=== PATIENT | female | born 1960 | race Caucasian/White ===

== ENCOUNTER 2020-12-13 14:18 | Outpatient (REF) | payer OTHER, SELFPAY ==
--- NOTE | ~2020-12-13 | MM_ITS ---
EXAMINATION: MM DIAGNOSTIC DIGITAL BREAST TOMOSYNTHESIS, BILATERAL CLINICAL INFORMATION: Left breast calcifications The lifetime risk of breast cancer based on the Tyrer-Cuzick Model is 7.9%. COMPARISON: Mammography: December 06, 2019 and studies dating back to October 10, 2018 TECHNIQUE: Digital breast tomosynthesis is performed in both the craniocaudal and mediolateral oblique views along with computer-aided detection (CAD). Synthesized 2D images are generated from the tomosynthesis. Additional spot magnification views left breast in craniocaudal and 90 degree mediolateral views performed. FINDINGS: The breasts are extremely dense, which lowers the sensitivity of mammography (ACR BI-RADS breast composition Category d). There are no new significant masses, abnormal calcifications, or other abnormalities. The 2 regions of left breast calcifications appear stable dating back to study of October 10, 2018 which is 2 years of stability. Results are provided to the patient at time of visit by the technologist. MM/MM tomosynthesis diagnostic BI IMPRESSION: There are no significant changes from prior study. ASSESSMENT: BI-RADS 2: Benign RECOMMENDATION: Routine annual mammography screening due in 12 months. This patient's information was entered into a reminder system with a target due date for their next mammogram.
== END 2020-12-13 14:19 | disposition home or self-care (01) ==
LOC: HO.MAMMO 14:18
PROVIDERS: PCP Nurse Practitioner Family; Visit Provider Surgery
DX: R92.1 Mammographic calcification found on diagnostic imaging of breast (principal)
CPT/HCPCS: 77062; 77066

== ENCOUNTER → 2021-01-13 15:45 | Outpatient (BNVA) | payer OTHER, SELFPAY | PROVIDERS: PCP Nurse Practitioner Family; Visit Provider Surgery ==

== ENCOUNTER 2021-12-27 09:31 | Outpatient (REF) | payer OTHER, SELFPAY ==
--- NOTE | ~2021-12-27 | MM_ITS ---
EXAMINATION: MM SCREENING DIGITAL BREAST TOMOSYNTHESIS, BILATERAL CLINICAL INFORMATION: Screening. Asymptomatic. The lifetime risk of breast cancer based on the Tyrer-Cuzick Model is 6%. COMPARISON: Mammography: 12/13/2020, 12/06/2019, 05/16/2019, 10/13/2018, 10/10/2018 TECHNIQUE: Digital breast tomosynthesis is performed in both the craniocaudal and mediolateral oblique views along with computer-aided detection (CAD). Synthesized 2D images are generated from the tomosynthesis. FINDINGS: The breasts are heterogeneously dense, which may obscure small masses (ACR BI-RADS breast composition Category c). Parenchymal pattern is similar to prior studies. There is no developing density or architectural abnormality. There is biopsy clip marker again noted right breast lower inner quadrant. Some scattered punctate calcifications central and anterior upper outer left breast are stable. The axilla and skin contours are unremarkable. No significant changes. MM/MM tomosynthesis screening BI IMPRESSION: No mammographic evidence of malignancy. ASSESSMENT: BI-RADS 2: Benign RECOMMENDATION: Routine annual mammography screening. This patient's information was entered into a reminder system with a target due date for their next mammogram.
== END 2021-12-27 09:32 | disposition home or self-care (01) ==
LOC: HO.MAMMO 09:31
PROVIDERS: Visit Provider Nurse Practitioner Family
DX: Z12.31 Encounter for screening mammogram for malignant neoplasm of breast (principal)
CPT/HCPCS: 77063; 77067

== ENCOUNTER 2022-04-05 09:58 | Emergency (ER) | payer OTHER, SELFPAY ==
--- NOTE | ~2022-04-05 | CT_ITS ---
EXAMINATION: CT ABDOMEN AND PELVIS WITHOUT CONTRAST CLINICAL INFORMATION: Lower abdominal pain with hematuria COMPARISON: CT abdomen pelvis November 09, 2019 TECHNIQUE: Multidetector volumetric imaging was performed from the superior aspect of the liver through the pubic symphysis. Sagittal and coronal reformatted images were obtained on the technologist's workstation. This CT examination was performed using dose optimization techniques as appropriate, variously including the following: *Automated exposure control *Adjustment of mA and/or kV according to patient size (this includes techniques or standardized protocols for targeted exams where dose is matched to indication/reason for exam; i.e. extremities or head) *Use of iterative reconstruction technique DLP: 776 mGy-cm FINDINGS: Visualized lung bases are well aerated. The liver demonstrates normal size, contour and attenuation. The gallbladder is normal in appearance. The pancreas, spleen and adrenal glands are unremarkable. Symmetrically sized kidneys. No renal calculi or hydronephrosis of either kidney. Tiny hiatal hernia. The stomach is decompressed. There is a mild to moderate colonic stool burden. There is colonic diverticulosis. Localized colonic wall thickening of the sigmoid colon with adjacent pericolonic stranding suggesting active diverticulitis. There is no complicating abscess. The bladder is completely decompressed and therefore not evaluated. Uterus is surgically absent. No gross free pelvic fluid. No inguinal lymphadenopathy. Mild degenerative changes of the spine. CT/CT abdomen pelvis wo IV con IMPRESSION: Active diverticulitis of the sigmoid colon. No complicating abscess. Colonoscopy may be warranted following treatment to ensure there is no underlying lesion. Fleischner guidelines were followed.
[2022-04-05 10:09] VITALS: BP 180/98; PULSE 89; RESP 16; O2SAT 98; BMI 27.3
[2022-04-05 11:48] LABS: MANUAL DIFF FLAG NO
[2022-04-05 11:52] LABS: Appearance Urine Clear; Color Urine Dark Yellow; Glucose Urine UA Negative (Negative); Leukocyte Esterase Urine Negative (Negative); Nitrite Urine Negative (Negative); PH 5.5 (5.0-9.0); Specific Gravity - Urine 1.025 (1.005-1.025); UMIC TRIGGER UACC YES; Urine Blood Moderate (2+) (Negative); Urine Ketones 40 mg/dL (Negative); Urine Protein Trace mg/dL (Neg-Trace)
[2022-04-05 11:54] LABS: Bacteria Urine None Seen (None Seen); Hyaline Casts Urine 0-2 /LPF (0-2); WBC Urine 0-5 /HPF (0-5)
[2022-04-05 11:55] LABS: Prothrombin Time 11.4 SEC (10.0-13.1)
[2022-04-05 11:58] LABS: Basophils Absolute Auto 0.1 X10*3/uL (0.0-0.2); Basophils Percent Auto 0.4 % (0-2); Eosinophils Absolute Auto 0.1 X10*3/uL (0.0-0.4); Hematocrit 44.1 % (37.0-47.0); Hemoglobin 14.2 g/dl (12.0-16.0); Imm Gran Abs Auto 0.04 X10*3/uL (0.00-0.03); Imm Gran Pct Auto 0.3 % (0.0-0.4); Lymphocytes Absolute Auto 2.1 X10*3/uL (1.2-4.9); Lymphocytes Percent Auto 14.6 % (20-40); Mean Corpuscular HGB Conc 32.2 g/dl (31.0-35.0); Mean Corpuscular Hemoglobin 29.5 pg (27.0-33.0); Mean Corpuscular Volume 91.7 fL (80.0-98.0); Mean Platelet Volume 10.6 fL (9.4-12.3); Monocytes Percent Auto 6.9 % (2-11); Neutrophils Absolute Auto 10.9 x10*3/uL (2.0-8.3); Neutrophils Percent Auto 76.8 % (45-73); Platelet Count 313 X10*3/uL (160-400); Red Blood Count 4.81 X10*6/uL (4.20-5.50); Red Cell Distribution Width 13.3 % (11.0-16.0); White Blood Count 14.2 X10*3/uL (4.8-10.8)
[2022-04-05 12:07] LABS: Alanine Aminotransferase 11 U/L (0-31); Albumin Level 4.3 g/dL (3.5-5.0); Alkaline Phosphatase 87 U/L (39-117); Anion Gap 15 (12-20); Aspartate Amino Transferase 15 U/L (5-31); Bilirubin Direct 0.3 mg/dL (0.0-0.5); Bilirubin Total 0.8 mg/dL (0.0-1.0); Blood Urea Nitrogen 15 mg/dL (9-16); Calcium 9.3 mg/dL (8.4-10.2); Carbon Dioxide 23 mmol/L (22-29); Chloride 107 mmol/L (96-108); Creatinine Clr Calc Pharmacy 93.8; Estimated Glomerular Filt Rate > 60; Glucose Random 84 mg/dL (60-115); Potassium 4.4 mmol/L (3.3-5.1); Sodium 141 mmol/L (135-145); Total Protein 7.1 g/dL (6.5-8.0)
[2022-04-05 12:11] LABS: Lipase 17 U/L (8-78)
[2022-04-05 12:28] LABS: Influenza A PCR NEGATIVE (Negative); Influenza B PCR NEGATIVE (Negative); Resp Syncy Virus RNA Qual PCR NEGATIVE (Negative); SARS COV2 PCR INHOUSE NEGATIVE (Negative)
[2022-04-05 13:58] VITALS: BP 174/83; PULSE 81; RESP 18; TEMP 37; O2SAT 99
[2022-04-05] MEDS: Ketorolac Tromethamine 30 MG/ML VIAL IVPUSH (16:39)
[2022-04-05] MEDS: metroNIDAZOLE 500 MG TABLET PO (16:39)
[2022-04-05] MEDS: levoFLOXacin 750 MG TABLET PO (16:39)
[2022-04-05 16:41] VITALS: BP 157/88; PULSE 87; RESP 18; O2SAT 97
--- NOTE | 2022-04-05 17:01 | ED_ITS ---
HPI - General Adult General Chief complaint: Abdominal Pain Stated complaint: abd pain Time Seen by Provider: 04/05/22 14:13 Source: patient Mode of arrival: ambulatory Limitations: no limitations History of Present Illness HPI narrative: 61-year-old female with pmh diverticulitis presents to the ED for LLQ pain for the past 3 day and nausea. patient denies any symptoms or trauma. Related Data Previous Rx's Medication Instructions Recorded levofloxacin 750 mg tablet 750 mg PO DAILY 4 days #4 tabs 04/05/22 metronidazole 500 mg tablet 500 mg PO BID 7 days #14 tabs 04/05/22 naproxen 500 mg tablet 500 mg PO BID PRN pain 10 days #20 04/05/22 tabs oxycodone 5 mg capsule 5 mg PO Q8H PRN pain 3 days #9 caps 04/05/22 Allergies Allergy/AdvReac Type Severity Reaction Status Date / Time bacitracin Allergy Unknown skin burn Verified 01/13/21 16:16 [Neosporin ([id number])] clarithromycin [From BIAXIN] Allergy Unknown HIVES Verified 01/13/21 16:16 neomycin Allergy Unknown skin burn Verified 01/13/21 16:16 [Neosporin ([id number])] penicillin V Allergy Unknown hives, Verified 01/13/21 16:16 painful joints Penicillins [PENICILLINS] Allergy Unknown HIVES Verified 01/13/21 16:16 polymyxin B Allergy Unknown skin burn Verified 01/13/21 16:16 [Neosporin ([id number])] Sulfa (Sulfonamide Allergy Unknown rash Verified 01/13/21 16:16 Antibiotics) Review of Systems Review of Systems: LLQ pain Yes all other systems are reviewed and are negative PMFSH Past Medical History Medical History (Updated 04/06/22 @ 00:01 by Sasha Velasquez) Hypertension Inversion, nipple Surgical History (Updated 01/14/21 @ 15:23 by Navneet Velazquez MD) History of appendectomy History of hysterectomy Status post surgical removal of malignant neoplasm of skin Social History Social History Smoked in Last 30 Days: Yes Use of substances other than those prescribed or required for medical reasons: No Advance Directives: No Advance Directives Information Provided: Yes Physical Exam ED Vital Signs: Vital Signs - 24 hr 04/05/22 13:58 04/05/22 16:41 Temperature 98.6 F Pulse Rate 81 87 Respiratory Rate 18 18 Blood Pressure 174/83 H 157/88 H Pulse Oximetry 99 97 Oxygen Delivery Method Room Air Room Air BMI result Body Mass Index 27.3 Const General: cooperative, healthy appearing, comfortable, no acute distress, well developed, alert, awake and Physically active Orientation/consciousness: oriented to person, oriented to place, oriented to time and patient oriented x3 [facility] Head: Yes normal to inspection, Yes No palpable skull fracture present, Yes normocephalic and Yes atraumatic Eyes General: appearance normal, both eyes and all related structures Neck Neck: Yes normal visual inspection, Yes full ROM, Yes no lymphadenopathy, Yes no meningeal signs, Yes trachea midline, Yes supple, No anterior neck swelling and No tender Chest Chest palpation & inspection: normal inspection of the chest and normal palpation of entire chest wall Resp Effort & Inspection: normal respiratory effort and able to speak in complete sentences Auscultation: clear to auscultation bilaterally Cardio Jugular venous distension: no JVD Heart sounds: S1 normal heart sound present and S2 normal heart sound present GI Inspection: Yes normal to inspection and No abdominal wall ecchymosis Palpation (GI): Soft to palpation, not firm, Tenderness to palpation present (GI) in the LLQ, no guarding and not rigid General: No CVA tenderness and Yes no CVA tenderness Back/Spine/Pelvis Back: no CVA tenderness, No CVA tenderness and No back tenderness Skin General skin exam: no rashes or lesions noted and elasticity normal Neuro General: oriented to person, oriented to place, oriented to time, patient oriented x3, gait normal, tone normal, no meningeal signs and CN's II-XI intact bilaterally Cranial nerves: Yes CN's II-XII intact bilaterally Extrem General: Yes normal to inspection and Yes full ROM Psych Appearance: grossly normal, well kempt and not disheveled Course Course Course Narrative: labs CT scan ordered. Medications Administered Discontinued Medications Generic Name Dose Route Start Last Admin Trade Name Freq PRN Reason Stop Dose Admin Ketorolac Tromethamine 30 mg 04/05/22 16:13 04/05/22 16:39 Ketorolac Tromethamine 30 Mg/Ml Vial IVPUSH 04/05/22 16:14 30 mg ONCE ONE Administration Levofloxacin 750 mg 04/05/22 16:15 04/05/22 16:39 Levofloxacin 750 Mg Tablet PO 04/05/22 16:16 750 mg ONCE ONE Administration Metronidazole 500 mg 04/05/22 16:15 04/05/22 16:39 Metronidazole 500 Mg Tablet PO 04/05/22 16:16 500 mg ONCE ONE Administration Medical Decision Making Medical Decision Making MDM Narrative: 61-year-old female history of diverticulitis presenting with left lower frantz drant pain. Labs CT scan ordered. Differential Diagnosis Differential Diagnoses: The differential diagnosis associated with the presentation includes ( Diverticulitis, kidney stones, UTI, bowel obstruction) Admission/Observation admissino/observation not indicated Lab Data [facility] Lab Attestation statement: I reviewed the patient's lab results. 04/05/22 11:38 04/05/22 11:38 Labs: Lab Results 04/05/22 04/05/22 04/05/22 Range/Units 11:38 11:38 11:38 WBC 14.2 H (4.8-10.8) X10*3/uL RBC 4.81 (4.20-5.50) X10*6/uL Hgb 14.2 (12.0-16.0) g/dl Hct 44.1 (37.0-47.0) % MCV 91.7 (80.0-98.0) fL MCH 29.5 (27.0-33.0) pg MCHC 32.2 (31.0-35.0) g/dl RDW 13.3 (11.0-16.0) % Plt Count 313 (160-400) X10*3/uL MPV 10.6 (9.4-12.3) fL Immature Gran % (Auto) 0.3 (0.0-0.4) % Neut % (Auto) 76.8 H (45-73) % Lymph % (Auto) 14.6 L (20-40) % [place] % (Auto) 6.9 (2-11) % Eos % (Auto) 1.0 (0-4) % Baso % (Auto) 0.4 (0-2) % Lymph # (Auto) 2.1 (1.2-4.9) X10*3/uL [place] # (Auto) 1.0 (0.1-1.2) X10*3/uL Eos # (Auto) 0.1 (0.0-0.4) X10*3/uL Baso # (Auto) 0.1 (0.0-0.2) X10*3/uL Abs Immat Gran (auto) 0.04 H (0.00-0.03) X10*3/uL Absolute Neuts (auto) 10.9 H (2.0-8.3) x10*3/uL Absolute Nucleated RBC 0.000 (0.0-0.012) X10*3/uL Nucleated RBC % (auto) 0.0 (0.0-0.2) /100WBC PT (10.0-13.1) SEC INR (0.9-1.1) Sodium 141 (135-145) mmol/L Potassium 4.4 (3.3-5.1) mmol/L Chloride 107 (96-108) mmol/L Carbon Dioxide 23 (22-29) mmol/L Anion Gap 15 (12-20) BUN 15 (9-16) mg/dL Creatinine 0.70 (0.5-1.4) mg/dL Estim Creat Clear Calc 93.8 Estimated GFR > 60 Random Glucose 84 (60-115) mg/dL Calcium 9.3 (8.4-10.2) mg/dL Total Bilirubin 0.8 (0.0-1.0) mg/dL Direct Bilirubin 0.3 (0.0-0.5) mg/dL AST 15 (5-31) U/L ALT 11 (0-31) U/L Alkaline Phosphatase 87 (39-117) U/L Total Protein 7.1 (6.5-8.0) g/dL Albumin 4.3 (3.5-5.0) g/dL Lipase 17 (8-78) U/L Urine Color Urine Appearance Urine pH (5.0-9.0) Ur Specific [place] (1.005-1.025) Urine Protein (Neg-Trace) mg/dL Urine Glucose (UA) (Negative) mg/dL Urine Ketones (Negative) mg/dL Urine Blood (Negative) Urine Nitrite (Negative) Ur Leukocyte Esterase (Negative) Urine RBC (0-2) /HPF Urine WBC (0-5) /HPF Ur Squamous Epith Cells (0-2) /HPF Urine Bacteria (None Seen) Hyaline Casts (0-2) /LPF Influenza Type A (PCR) NEGATIVE (Negative) Influenza Type B (PCR) NEGATIVE (Negative) RSV RNA Qual (PCR) NEGATIVE (Negative) SARS-CoV-2 RNA (RT-PCR) NEGATIVE (Negative) 04/05/22 04/05/22 Range/Units 11:38 11:38 WBC (4.8-10.8) X10*3/uL RBC (4.20-5.50) X10*6/uL Hgb (12.0-16.0) g/dl Hct (37.0-47.0) % MCV (80.0-98.0) fL MCH (27.0-33.0) pg MCHC (31.0-35.0) g/dl RDW (11.0-16.0) % Plt Count (160-400) X10*3/uL MPV (9.4-12.3) fL Immature Gran % (Auto) (0.0-0.4) % Neut % (Auto) (45-73) % Lymph % (Auto) (20-40) % [place] % (Auto) (2-11) % Eos % (Auto) (0-4) % Baso % (Auto) (0-2) % Lymph # (Auto) (1.2-4.9) X10*3/uL [place] # (Auto) (0.1-1.2) X10*3/uL Eos # (Auto) (0.0-0.4) X10*3/uL Baso # (Auto) (0.0-0.2) X10*3/uL Abs Immat Gran (auto) (0.00-0.03) X10*3/uL Absolute Neuts (auto) (2.0-8.3) x10*3/uL Absolute Nucleated RBC (0.0-0.012) X10*3/uL Nucleated RBC % (auto) (0.0-0.2) /100WBC PT 11.4 (10.0-13.1) SEC INR 1.0 (0.9-1.1) Sodium (135-145) mmol/L Potassium (3.3-5.1) mmol/L Chloride (96-108) mmol/L Carbon Dioxide (22-29) mmol/L Anion Gap (12-20) BUN (9-16) mg/dL Creatinine (0.5-1.4) mg/dL Estim Creat Clear Calc Estimated GFR Random Glucose (60-115) mg/dL Calcium (8.4-10.2) mg/dL Total Bilirubin (0.0-1.0) mg/dL Direct Bilirubin (0.0-0.5) mg/dL AST (5-31) U/L ALT (0-31) U/L Alkaline Phosphatase (39-117) U/L Total Protein (6.5-8.0) g/dL Albumin (3.5-5.0) g/dL Lipase (8-78) U/L Urine Color Dark Yellow Urine Appearance Clear Urine pH 5.5 (5.0-9.0) Ur Specific [place] 1.025 (1.005-1.025) Urine Protein Trace (Neg-Trace) mg/dL Urine Glucose (UA) Negative (Negative) mg/dL Urine Ketones 40 (Negative) mg/dL Urine Blood Moderate (2+) H (Negative) Urine Nitrite Negative (Negative) Ur Leukocyte Esterase Negative (Negative) Urine RBC 11-20 H (0-2) /HPF Urine WBC 0-5 (0-5) /HPF Ur Squamous Epith Cells 3-5 (0-2) /HPF Urine Bacteria None Seen (None Seen) Hyaline Casts 0-2 (0-2) /LPF Influenza Type A (PCR) (Negative) Influenza Type B (PCR) (Negative) RSV RNA Qual (PCR) (Negative) SARS-CoV-2 RNA (RT-PCR) (Negative) Radiology Impression Discussion of test interpretation with radiology: I have reviewed the r adiologist's reading. (Devirticulitis wihout with perforation or abscess) Prescription Management I considered prescription management with: Pain Medication and Antibiotic Chronic Conditions Patient?s care impacted by: Other (Divertliculitis) Discharge Plan Discharge Clinical Impression: Diverticulitis Patient Disposition: Home, Self-Care Instructions: Diverticulitis (ED) Additional Instructions: CT scan came back positive for diverticulitis. He will be discharged with pain medication antibiotics. Return to ED for worsening abdominal pain pain, fever, chills, diarrhea, blood in stool, flank pain, dysuria, hematuria, or any other concerning symptoms. Prescriptions: New levofloxacin 750 mg tablet 750 mg PO DAILY 4 Days Qty: 4 0RF metronidazole 500 mg tablet 500 mg PO BID 7 Days Qty: 14 0RF oxycodone 5 mg capsule 5 mg PO Q8H PRN (Reason: pain) 3 Days Qty: 9 0RF Rx Instructions: Partial Fill upon patient request. Side effect is drowsiness naproxen 500 mg tablet 500 mg PO BID PRN (Reason: pain) 10 Days Qty: 20 0RF Referrals: Dominga Prasad NP [Primary Care Provider] - (Diverticulitis) Interventions: ED Discharge Assessment Last Done: 04/05/22 17:43 Discharge Date/Time: 04/05/22 17:44 Print Language: Citizen Of [place]
== END 2022-04-05 17:44 | disposition home or self-care (01) ==
PROVIDERS: Physician Assistant Medical; Emergency Provider Emergency Medicine Emergency Medical Services; PCP Nurse Practitioner Family
DX: K57.32 Diverticulitis of large intestine without perforation or abscess without bleeding (principal); R10.32 Left lower quadrant pain; Z79.899 Other long term (current) drug therapy; Z20.822 Contact with and (suspected) exposure to COVID-19; Z20.828 Contact with and (suspected) exposure to other viral communicable diseases
CPT/HCPCS: 0241U; 36415; 74176; 80048; 80076; 81001; 83690; 85025; 85610; 96372; 99284; J1885

== ENCOUNTER 2024-07-07 16:04 | Outpatient (REF) | payer OTHER, SELFPAY ==
--- OUTSIDE RECORDS SUMMARY | 2024-07-07 16:07 | XMS_ITS | Data Portability ---
Author Organization [place] - [facility] [address] Address [address] [place] [address] Care Team Providers Care Green Chain Worker Name Role Phone MELANIE MCKINNEY Primary Care Provider Assessment No assessment recorded. Plan of Treatment Reminders Order Date Submit Date Provider Last Modified By Organization Details Last Modified Time Details Appointments None record ed. Lab None record ed. Referral None record ed. Procedures None record ed. Surgeries None record ed. Imaging None record ed. Medication Orders None record ed. Patient TargetsNo targets recorded. Patient InstructionsNo instructions recorded. Reason for Referral None Reported. Problems Name Problem SNOMED Code Status Onset Date Resolution Date Notes Provider Name and Address Organization Details Recorded Time Diverticulitis [id number] Active 2022 KP turner PA - [facility] 09:21:50 Problem Notes None recorded. Procedures Surgical History Date Name Laterality Status Provider Name and Address Organization Details Recorded Time hysterectomy completed KP CAMPBELL PA - [facility] 06/03/2022 09:24:30 appendectomy completed KP CAMPBELL PA - [facility] 06/03/2022 09:24:37 hernia repair completed KP CAMPBELL PA - [facility] 06/03/2022 09:24:55 excision of varicose vein completed KP CAMPBELL PA - [facility] 06/03/2022 09:25:08 excision of squamous cell carcinoma completed KP CAMPBELL PA - [facility] 06/03/2022 09:25:24 procedure on skin completed KP Price PA - [facility] 06/03/2022 09:25:44 Imaging Results None recorded. Procedure Notes None recorded. Medical Equipment None Reported. Allergies Allergen ID Allergen Name Allergen Category Reaction Reaction Severity Criticality Documentation Date Start Date Code Code System Note Provider Name and Address Organization Details Recorded Time 653463 Product containin g penicilli n (product) medicatio n arthralgi a (joint pain) hives Not available Not available Not available 06/03/2022 52543 8001 SNOMED KP CAMPBELL null, PA - [facility] 3 09:17:06 [id number] Biaxin medicatio n arthralgi a (joint pain) Not available Not available 06/03/202277199 9 RxNorm KP LUPICA null, PA - [facility] 3 09:17:37 599680 bacitraci n / neomycin / polymyxin B medicatio n rash Not available Not available 06/03/2022 62368 9 RxNorm KP MONTOYAICA null, PA - [facility] 3 09:18:00 Medications Name Sig Start Date Stop Date Status Note LastModified by Organization Details LastModified Time prednisone 10 mg tablet 06/03 completed Not Available Not Available Not Available doxycycline hyclate 100 mg capsule TAKE 1 CAPSULE BY MOUTH TWICE DAILY FOR 7 DAYS 06/03 completed Not Available Not Available Not Available valacyclovi r 1 gram tablet TAKE 2 TABLETS BY MOUTH EVERY 12 HOURS FOR 1 DAY FOR COLD SORE 06/03 completed Not Available Not Available Not Available prednisone 20 mg tablet TAKE 1 TABLET BY MOUTH TWICE DAILY FOR 5 DAYS 06/03 completed Not Available Not Available Not Available metronidazo le 500 mg tablet TAKE 1 TABLET BY MOUTH TWICE DAILY FOR 7 DAYS 06/03 completed Not Available Not Available Not Available ciprofloxac in 500 mg tablet TAKE 1 TABLET BY MOUTH TWICE DAILY FOR 7 DAYS 06/03 completed Not Available Not Available Not Available benzonatate 100 mg capsule TAKE 1 CAPSULE BY MOUTH EVERY 8 HOURS FOR 7 DAYS NEEDED FOR COUGH 06/03 completed Not Available Not Available Not Available oxycodone 5 mg capsule TAKE 1 CAPSULE BY MOUTH EVERY 8 HOURS NEEDED FOR PAIN FOR 3 DAYS 06/03 completed Not Available Not Available Not Available diclofenac potassium 50 mg tablet TAKE 1 TABLET BY MOUTH THREE TIMES DAILY NEEDED FOR PAIN 06/03 completed Not Available Not Available Not Available levofloxaci n 750 mg tablet TAKE 1 TABLET BY MOUTH DAILY FOR 4 DAYS 06/03 completed Not Available Not Available Not Available ondansetron 4 mg disintegrat ing tablet DISSOLVE 1 TABLET ON THE TONGUE EVERY 8 HOURS NEEDED FOR NAUSEA OR VOMITING DISSOLVE ON TONGUE 06/03 completed Not Available Not Available Not Available doxycycline hyclate 100 mg tablet TAKE 1 TABLET BY MOUTH TWICE DAILY FOR 10 DAYS WITH FLUID 06/03 completed Not Available Not Available Not Available loratadine 10 mg tablet TAKE 1 TABLET BY MOUTH EVERY DAY FOR ALLERGY SYMPTOMS OR ITCHING 06/03 completed Not Available Not Available Not Available naproxen 500 mg tablet TAKE 1 TABLET BY MOUTH TWICE DAILY FOR 10 DAYS NEEDED FOR PAIN active Not Available Not Available No t Available cyclobenzap rine 5 mg tablet TAKE 1 TABLET BY MOUTH EVERY 8 HOURS NEEDED FOR MUSCLE SPASM active Not Available Not Available No t Available diclofenac 1 % topical gel APPLY TOPICALLY TO THE AFFECTED AREA FOUR TIMES DAILY NEEDED FOR PAIN 06/03 completed Not Available Not Available Not Available Gavilyte-C 240 gram-22.72 gram-6.72 gram-5.84 gram oral solution TAKE 8OZ BY MOUTH DIRECTED EVERY 15 TO 20 MINUTES UNTIL DONE 06/03 completed Not Available Not Available Not Available Paxlovid 300 mg (150 mg x 2)-100 mg tablets in a dose pack TAKE 3 TABLETS BY MOUTH TWICE DAILY 06/03 completed Not Available Not Available Not Available Vitals Date Recorded Body height Body mass index (BMI) Body weight Body temperature Heart rate Oxygen saturation Oxygen saturation in Arterial blood by Pulse oximetry Respiratory rate Systolic blood pressure Diastolic blood pressure Provider Name and Address Organization Details Last Updated DateTime 3 167.64 cm 27.4 kg/m2 45645.7 g 97.3 [degF] 69 /min 95 % 95 % 16 /min 159 mm[Hg] 86 mm[Hg] KP Lindsey [employer] [facility] 3 09:28:02 Social History Question Answer Notes LastModified by Organizat ion Details LastModified Time Tobacco Smoking Status Current Every Day Smoker SCARLET Nuno [facility] 06/03/2022 09:24:05 What Is Your Level Of Alcohol Consumption? Occasional [email or web address] Information not available 06/03/2022 How Much Tobacco Do You Smoke? 0.5 PPD [email or web address] Information not available 06/03/2022 Do You Use Any Illicit Or Recreational Drugs? No [email or web address] Information not available 06/03/2022 Have You Recently Traveled Abroad? No Information not available 06/03/2022 Do You Or Have You Ever Used Any Other Forms Of Tobacco Or Nicotine? No [email or web address] Information not available 06/03/2022 Sex: Unknown Functional Status None recorded. Mental Status None recorded. Family History Relationship Description Onset Age of this Age Resolved Age Notes LastModified by Organization Details LastModified Time Father Diabetes mellitus [email or web address] Not available 2022 09:22:31 Father Malignant tumor of lung [email or web address] Not available 2022 09:23:14 Mother Diabetes mellitus [email or web address] Not available 2022 09:22:31 Mother Congestive heart failure [email or web address] Not available 2022 09:22:48 Brother Chronic obstructive pulmonary disease [email or web address] Not available 2022 09:22:59 Brother Heart disease [email or web address] Not available 2022 09:23:21 Medical History No medical history recorded. Gynecological HistoryNo gynecological history recorded. Obstetrics History GPAL:G 0 P 0 0 0 0 Past Encounters Encounter ID Performer Location Encounter Start Date Encounter Closed Date Diagnosis/Indication Diagnosis SNOMED-CT Code Diagnosis ICD10 Code Diagnosis Note [id number] [address] [place] [address] 06/16/2016 10:19:33 06/16/2016 11:09:17 [id number] [address] [place] [address] 07/23/2021 13:45:08 07/23/2021 14:57:24 [id number] [address] [place] [address] 09/30/2021 09:53:45 09/30/2021 11:29:09 [id number] [address] [place] [address] 03/26/2019 09:32:55 03/26/2019 11:32:48 [id number] [address] [place] [address] 06/29/2020 09:06:11 06/29/2020 10:48:10 [id number] DORIE WALKER MD [address] [place] [address] 06/03/2022 08:08:39 06/03/2022 10:31:32 Tendinitis of right elbow 8342475859 9831800 M67.823 Restart the diclofenac as prescribed by your doctor. HeatApply moist heatto affected area 3 times a day for 20 minutes at a time. Do not sleep with a heating pad as it may cause skin meadows.?Topical medication such as Stop Pain-Roll On feels good to rub on painful areas. Do not apply over broken skin. Call your PCP to schedule a follow up appointmen t within the next 2 weeks. Health Concerns Section Related Observation LastModified by Organization Detai ls LastModified Time None Recorded Concern Status LastModified by Organization Details LastModified Time None Recorded Advance Directives Directive None Recorded Payers Encounter Date Sequence Insurance Name Policy Number Policy Huerta Covered Member ID Huerta Member ID Guarantor Name 03/26/2019 1 [facility] [id number] Hafsa Porras [id number] Hafsa Porras 06/29/2020 1 [facility] [id number] Hafsa Porras [id number] Hafsa Porras 07/23/2021 [facility] [id number] Hafsa Porras [id number] Hafsa Porras 09/30/2021 [facility] [id number] CintiaSally Porras [id number] CintiaSally Porras 06/03/2022 [facility] [id number] Cintia Chiquita [id number] Cintia Chiquita Notes Date Note Type Note Provider Name and Address Organization Details Recorded Time 06/03/2022 text/html Upper Arm Elbow Injury UCReported bypatient.Hand Dominance:right Location:right Quality:aching; sharp; deep; constant; worsening Severity:moderate Duration:1 weeks Timing:acute Context:lifting; It hurts to even left a coffee cup Alleviating Factors:NSAIDs Aggravating Factors:lifting Associated Symptoms:no radiation down arm;weakness Previous InjuryNo prior injury to affected body part DORIE WALKER MD [address] [facility] [address], [place], [address], [place] - [facility] 06/03/2022 10:28:01 OBGyn Episode No OBEpisode recorded.
--- OUTSIDE RECORDS SUMMARY | 2024-07-07 16:07 | XMS_ITS | Encounter Summary ---
Author Organization [facility] Address [address] [place] [address] Care Team Providers Care Hydrogenation Operator Name Role Phone Dominga Prasad Primary Care Provider [phone] Encounter Details Date Type Department Care Team (Late st Contact Info) Description 01/07/2021 Lab Requisition [facility] [address] [place] [address] Alexis Anderson MD [address] [place] [address] [id number] Social History Tobacco Use Types Packs/Day Years Used Date Smoking Tobacco: Never Assessed Comments Unknown Sex and Gender Information Value Date Recorded Sex Assigned at Not on file Legal Sex Female 3:21 PM EDT Gender Identity Not on file Sexual Orientation Not on file documented as of this encounter Plan of Treatment Not on file documented as of this encounter Procedures * Due to [facility] [place] law, this organization might not be sharing negative HIV tests. Procedure Name Priority Date/Time Associated Diagnosis Comments TISSUE EXAM Routine 01/07/2021 3:34 PM EDT documented in this encounter Results * Due to [place] law, this organization might not be sharing negative HIV tests. 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 - Prior surgical site changes, excised. [facility] MANUAL 01/07/2021 4:04 PM EDT [facility] at 1604 EDT Clinical History Re-excision squamous cell cancer [employer] MANUAL 01/07/2021 4:04 PM EDT [employer] [facility] [facility] Gross Consult Client Facility: [facility] Slide Identification: [id number] Number of Glass Slides Received: 3 Number of Blocks Received: 0 Client Pathologist: Dr. Mark Niño Accompanying Report Received: Yes [facility] MANUAL 01/07/2021 4:04 PM EDT [facility] Gross Description User Grossing complete by Yesenia Lee on 01/07/2021 3:34 PM [employer] MANUAL 01/07/2021 4:04 PM EDT [facility] Embedded Images [facility] MANUAL 01/07/2021 4:04 PM EDT [facility] Resulting Agency Case was signed out at [facility], Department of Pathology, [facility] 3 CLIA [id number] [employer] MANUAL 01/07/2021 4:04 PM EDT [facility] Tissue Genital labium structure / Unknown 01/07/2021 3:34 PM EDT 01/07/2021 3:34 PM EDT us Alexis Anderson MD LAB PATHOLOGY/CYTOLOGY OR DERABLES Final Result [facility] [address] [place] [address] documented in this encounter Visit Diagnoses Not on filedocumented in this encounter Care Teams Hydrogenation Operator Relationship Specialty Start Date End Date Dominga Prasad [address] [place] [phone] PCP - General 01/08/21 documented as of this encounter
--- OUTSIDE RECORDS SUMMARY | 2024-07-07 16:07 | XMS_ITS | Referral Summary ---
Author Organization [facility] Address [address] [place] [address] Care Team Providers Care Assistant Engineer Name Role Phone Dominga Prasad Primary Care Provider [phone] Allergies Active Allergy Reactions Criticality Noted Date Comments Clarithromycin Hives 01/27/2021 Penicillins Hives 01/27/2021 Sulfa (Sulfonamide Antibiotics) Unknown 03/2020 Medications LORazepam (ATIVAN) 0.5 mg tablet Take 0.25 mg by mouth once a day. 1 Active mupirocin (BACTROBAN) 2% ointment Apply topically to the affected area once a day. 1 Active Active Problems No known active problems Social History Tobacco Use Types Packs/Day Years Used Date Smoking Tobacco: Never Assessed Comments Unknown Sex and Gender Information Value Date Recorded Sex Assigned at Not on file Legal Sex Female 3:21 PM EDT Gender Identity Not on file Sexual Orientation Not on file Last Filed Vital Signs Vital Sign Reading Time Taken Comments Blood Pressure 169/91 01/27/2021 1:25 PM EDT Pulse 85 01/27/2021 1:25 PM EDT Temperature - - Respiratory Rate - - Oxygen Saturation - - Inhaled Oxygen Concentration - - Weight - - Height - - Body Mass Index - - Plan of Treatment Not on file Insurance [employer] Care Teams Assistant Engineer Relationship Specialty Start Date End Date Dominga Prasad [address] [place] [id number] PCP - General 01/08/21
--- OUTSIDE RECORDS SUMMARY | 2024-07-07 16:07 | XMS_ITS | Clinical Summary ---
Author Organization [facility] Address [address] [place] [address] Care Team Providers Care Otolaryngology Surgeon Name Role Phone Dominga Prasad Primary Care Provider [phone] Allergies Active Allergy Reactions Criticality Noted Date [...] Mass Index - - Plan of Treatment Health Maintenance Due Date Last Done Comments Cervical Cancer Screening 1962 Cologuard 1962 Colon Cancer Screening 1962 Colonoscopy 1962 FOBT / Fit Test 1962 HIV Screening 1962 HPV and Pap Smear 1962 Pap Smear 1962 Sigmoidoscopy 1962 DTaP,Tdap,and Td Vaccines (1 - Tdap) 1984 Pneumococcal Vaccine: 50+ Years (1 of 1 - PCV) 2012 Zoster Vaccines (1 of 2) 2012 COVID-19 Vaccine (3 - 2023-2 5 season) 2023 07/16/2020, 06/17/2020 Alcohol/Substance Use Screening 03/29/2024 Influenza Vaccine (Season Ended) 2024 RSV Vaccine (60+ years old a nd patients) (1 - 1-dose 75+ series) 2037 Hepatitis B Vaccines Aged Out No long er eligible based on patient's age to complete this topic Insurance Care Teams Otolaryngology Surgeon Relationship Specialty Start Date End Date Dominga Prasad [address] [place] [id number] PCP - General 01/08/21
== END 2024-07-07 16:05 | disposition home or self-care (01) ==
LOC: HO.MAMMO 16:04
PROVIDERS: PCP Nurse Practitioner Family; Visit Provider Nurse Practitioner Family
DX: Z12.31 Encounter for screening mammogram for malignant neoplasm of breast (principal)
CPT/HCPCS: 77063; 77067

== ENCOUNTER → 2024-07-07 16:30 | Outpatient (BNV) | payer OTHER, SELFPAY | PROVIDERS: PCP Nurse Practitioner Family; Visit Provider Internal Medicine | DX: Z12.31 Encounter for screening mammogram for malignant neoplasm of breast (principal) | CPT/HCPCS: 77063; 77067 ==